=== PATIENT | female | born 1975 | race Hispanic/Latino ===

== ENCOUNTER → 2019-04-20 | Day surgery (SDC) | payer OTHER ==
[~2019-04-20] MED LIST: FENTANYL CITRATE/PF 100MCG/2 ML INJ ONE; GLYCOPYRROLATE INJ 1MG/ 5 ML SYR ONE; MIDAZOLAM HCL 2 MG/2 ML VIAL ONE; MULTIVITAMINS1 EAC7 PO; PANTOPRAZOLE SO40 MG PO; PHENYLEPHRINE HCL 1% 10 MG/ML VIAL ONE; PROPOFOL IV EMULSION 10 MG/ML 50 ML VIAL ONE; SYNTHROID50 MCG PO; VESICARE5 MG PO; birth control PO
[2019-04-20 12:49] VITALS: BP 108/58
--- NOTE | 2019-04-20 18:51 | Operative Report ---
DATE OF PROCEDURE: 04/20/2019 SURGEON: Christian Byers MD PROCEDURE: Colonoscopy and polypectomy. INDICATION FOR COLONOSCOPY: Surveillance colonoscopy, personal history of colon polyps, family history of colon cancer. MEDICATIONS: The patient was done under MAC, please see anesthesiologist's note. PROCEDURE IN DETAIL: With the patient in left lateral decubitus position, flexible fiberoptic Olympus colonoscope was inserted into the rectum with ease and advanced all the way to the cecum. It was then withdrawn slowly, mucosa overlying the cecum and the ascending colon appeared to be within normal limits. One polyp was hot biopsied from the proximal transverse colon. The rest of the transverse, descending, sigmoid and rectum appeared to be within normal limits. The scope was then retroflexed into the distal rectum and small internal hemorrhoids were noted, none of which was actively bleeding. The scope was then straightened out, it was subsequently withdrawn. The patient tolerated the procedure well. IMPRESSION: 1. Transverse colon polyp, hot biopsied. 2. Internal hemorrhoids, none actively bleeding. PLAN: Follow up histology. Initiate high-fiber, low-fat diet. Initiate high-fiber supplement. The patient might benefit from a followup colonoscopy in 3 to 5 years. Christian Byers MD [facility] [place] /[id number] cc: Isidro Monae DO
== END | disposition home or self-care (01) ==
LOC: OR 08:29
PROVIDERS: ATTEND Internal Medicine Gastroenterology
DX: Z09 Encounter for follow-up examination after completed treatment for conditions other than malignant neoplasm (principal); K63.5 Polyp of colon; K64.8 Other hemorrhoids; K29.60 Other gastritis without bleeding; K21.9 Gastro-esophageal reflux disease without esophagitis; K20.8 Other esophagitis; G47.30 Sleep apnea, unspecified; Z68.30 Body mass index [BMI] 30.0-30.9, adult; Z80.0 Family history of malignant neoplasm of digestive organs
CPT/HCPCS: 45384; 81025; J2250; J2370; J2704; J3490

== ENCOUNTER 2024-03-31 00:49 | Emergency (ER) | payer OTHER ==
[~2024-03-31] VITALS: Ht 162.6 cm; Wt 88.5 kg
[~2024-03-31 00:49] MED LIST changes: -FENTANYL CITRATE/PF 100MCG/2 ML INJ ONE; -GLYCOPYRROLATE INJ 1MG/ 5 ML SYR ONE; -MIDAZOLAM HCL 2 MG/2 ML VIAL ONE; -PHENYLEPHRINE HCL 1% 10 MG/ML VIAL ONE; -PROPOFOL IV EMULSION 10 MG/ML 50 ML VIAL ONE
[2024-03-31] MEDS ORDERED: KETOROLAC TROMETHAMINE 30 MG/ML VIAL ONE (01:54)
[2024-03-31] MEDS: KETOROLAC TROMETHAMINE 30 MG/ML VIAL IV STA (02:07)
[2024-03-31 02:37] VITALS: BP 122/80; PULSE 81; RESP 16; TEMP 98; O2SAT 98
== END 2024-03-31 02:36 | disposition home or self-care (01) ==
LOC: FSED 00:58
DX: N92.0 Excessive and frequent menstruation with regular cycle (principal); D68.61 Antiphospholipid syndrome; B02.29 Other postherpetic nervous system involvement; E03.9 Hypothyroidism, unspecified
CPT/HCPCS: 99284; J1885